=== PATIENT | male | born 1970 | race Hispanic/Latino ===

== ENCOUNTER → 2021-12-23 | Day surgery (SDC) | payer OTHER ==
[~2021-12-23] MED LIST: BUPIVACAINE HCL 0.5% INJ 30 ML VIAL INJ ONE; DEXAMETHASONE SOD PHOS INJ 4 MG/ML SDV ONE; EPHEDRINE SULFATE INJ 50 MG/ML VIAL ONE; FENTANYL CITRATE/PF 100MCG/2 ML INJ ONE; GLYCOPYRROLATE INJ 0.2 MG/ML VIAL ONE; IBUPROFEN200 MG PO; LIDOCAINE 2%/ EPINEPHRINE 20ML MDV ONE; LIDOCAINE HCL 2% LOCAL 20 ML VIAL ONE; LIDOCAINE HCL 2% LOCAL INJ 5 ML SDV VIAL INJ ONE; MEPERIDINE HCL INJ 25 MG/ML VIAL ONE; METOCLOPRAMIDE HCL 10 MG/2ML VIAL ONE; MIDAZOLAM HCL 2 MG/2 ML VIAL ONE; ONDANSETRON HCL INJ 2MG/ML 2ML 2 MG/ML VIAL ONE; POVIDONE IODINE 0.05% 0.05 % ML PO ONE; PROPOFOL IV EMULSION 10 MG/ML 20 ML VIAL ONE; ROPIVACAINE 0.5% 5 MG/ML 30 ML SDV ONE; SEVOFLURANE INHAL SOLN 250 ML PEN BTL ONE; [UNRECOGNIZED DRUG - OTHER]
[2021-12-23 09:40] VITALS: BP 125/96
== END | disposition home or self-care (01) ==
LOC: OR 06:28 → EDSEX 09:30
PROVIDERS: ATTEND Orthopaedic Surgery
DX: S83.231A Complex tear of medial meniscus, current injury, right knee, initial encounter (principal); D75.89 Other specified diseases of blood and blood-forming organs; S83.281A Other tear of lateral meniscus, current injury, right knee, initial encounter; M22.41 Chondromalacia patellae, right knee; M67.51 Plica syndrome, right knee; M23.41 Loose body in knee, right knee; I45.4 Nonspecific intraventricular block; X58.XXXA Exposure to other specified factors, initial encounter; Z01.810 Encounter for preprocedural cardiovascular examination; Z79.1 Long term (current) use of non-steroidal anti-inflammatories (NSAID)
CPT/HCPCS: 27599; 29882; 93005; C1713 ×5; J0690; J1100; J2001 ×3; J2175; J2250; J2405; J2704; J2765; J2795; J3010; 76000

== ENCOUNTER → 2022-03-17 | Day surgery (SDC) | payer OTHER ==
[2022-03-15 12:07] LABS: BASOPHILS % 0.6 % (0.0-1.0); EOSINOPHILS # (AUTO) 0.3 (0.0-0.4); EOSINOPHILS % 4.2 % (0.0-6.0); HEMATOCRIT 41.2 % (38.2-49.6); HEMOGLOBIN 13.2 g/dL (14.0-18.0); LYMPHOCYTES # (AUTO) 1.7 (1.0-3.2); LYMPHOCYTES % 26.1 % (18.0-39.1); MEAN CORPUSCULAR HEMOGLOBIN 27.7 pg (28-32); MEAN CORPUSCULAR VOLUME 86.4 fL (81-99); MONOCYTES # (AUTO) 0.5 (0.2-0.8); MONOCYTES % 7.5 % (4.4-11.3); NEUTROPHILS # (AUTO) 4.1 (2.1-6.9); NEUTROPHILS % 61.3 % (38.7-80.0); PLATELET COUNT 229 x10e3/uL (140-360); RED BLOOD COUNT 4.77 x10e6/uL (4.3-5.7); RED CELL DISTRIBUTION WIDTH 14.2 % (11.7-14.4)
[2022-03-15 12:28] LABS: ANION GAP 13.3 mmol/L (8-16); CALCIUM 9.5 mg/dL (8.4-10.2); CREATININE, SERUM 1.33 mg/dL (0.72-1.25); POTASSIUM 4.3 mmol/L (3.5-5.1)
[~2022-03-17] MED LIST changes: +ASPIRIN EC81 MG PO; +BUPIVACAINE 0.5%/EPI 30 ML SDV INJ ONE; -BUPIVACAINE HCL 0.5% INJ 30 ML VIAL INJ ONE; +CEFTRIAXONE 1 GM VIAL ONE; +FLOMAX0.4 MG PO; +GENTAMICIN 80MG/NS 100 ML 200 ML IV ONE; -GLYCOPYRROLATE INJ 0.2 MG/ML VIAL ONE; +HYDROCODON-ACE1 EA11 PO; +IOPAMIDOL 370 MG/ML 100 ML INFUS..BTL INJ ONE; +LEVOFLOXACIN250 MG PO; -LIDOCAINE 2%/ EPINEPHRINE 20ML MDV ONE; -METOCLOPRAMIDE HCL 10 MG/2ML VIAL ONE; -ROPIVACAINE 0.5% 5 MG/ML 30 ML SDV ONE
[2022-03-17 11:00] VITALS: BP 122/82
== END | disposition home or self-care (01) ==
LOC: OR 05:54
PROVIDERS: ATTEND Urology
DX: N40.1 Benign prostatic hyperplasia with lower urinary tract symptoms (principal); R33.8 Other retention of urine; N39.0 Urinary tract infection, site not specified; N18.9 Chronic kidney disease, unspecified; N13.30 Unspecified hydronephrosis; N32.89 Other specified disorders of bladder; N47.1 Phimosis; R39.16 Straining to void; N31.2 Flaccid neuropathic bladder, not elsewhere classified; M54.2 Cervicalgia; I83.90 Asymptomatic varicose veins of unspecified lower extremity; Z72.0 Tobacco use; Z88.8 Allergy status to other drugs, medicaments and biological substances; Z01.812 Encounter for preprocedural laboratory examination
CPT/HCPCS: 36415; 51040; 52005; 74420; 80048; 85025; C1758; J0696; J1100; J1580; J2001 ×2; J2175; J2250; J2405; J2704; J3010; Q9967